=== PATIENT | female | born 1945 | race Two or more races ===

== ENCOUNTER 2019-08-06 07:34 | Outpatient (CLI) | payer OTHER | END 2019-08-06 07:42 | disposition home or self-care (01) | LOC: NUCLEAR 07:34 | DX: I20.8 Other forms of angina pectoris (principal) | CPT/HCPCS: 78452; 93017; A9500; J0153 ==

== ENCOUNTER 2022-07-01 07:12 | Outpatient (CLI) | payer OTHER | END 2022-07-01 07:15 | disposition home or self-care (01) | LOC: NUCLEAR 07:12 | PROVIDERS: ATTEND Internal Medicine Cardiovascular Disease | DX: I20.9 Angina pectoris, unspecified (principal); I10 Essential (primary) hypertension | CPT/HCPCS: 78452; 93017; A9500 ==